=== PATIENT | female | born 1940 | race Caucasian/White ===

== ENCOUNTER 2023-09-23 03:21 | Outpatient (OUT) | payer MEDICARE, MEDICAID, SELFPAY ==
[2023-09-23 08:50] LABS: Estimated Average Glucose 146 mg/dL; Glycohemoglobin A1C 6.7 % (4.5-6.2)
--- OUTSIDE RECORDS SUMMARY | 2023-11-04 09:24 | XMS_ITS | CCD ---
Author Organization [place] [facility] Care Team Providers Care Journeyman Millwright Name Role Phone SUSAN, JOSE Bustos Admitting Unavailable WONDERLY, JOSE Bustos Consulting Unavailable WONDERLY, JOSE Bustos Attending Unavailable WONDERLY, JOSE Bustos Attending Unavailable WONDERLY, JOSE Bustos Admitting Unavailable WONDERLY, JOSE Bustos Consulting Unavailable Problems Problem Classification Problem Date Documented Da te Episodic/Chronic Unclassified (4 sources) CONTACT W/AND (SUSP) EXPOS COVID-19; Translations: [CONTACT W/AND (SUSP) EXPOS COVID-19] Onset: 05-06-2020 Results Test Name Value Interpretation Reference Range Facil ity Marko 11-17-2020 L - -------- Specimen: [id number] Received: 11/17/20 Status: JAME Urena Num: [id number] Spec Type: Surgical Subm Dr: Timothy Bautista MD Tissues: A Colon Biopsy (RANDOM COLON) Procedures: HE Stain/2, Gross/Micro L4 -------- Patient Age/Sex Location Account Attending Physician -------- Cathi Hernandez 80/F [id number] Timothy Bautista MD -------- SPEC NUM: [id number] RECD: 11/17/20 STATUS: JAME URENA NUM: [id number] ZACHARY: 11/17/20 [facility] DR: Timothy Bautista MD ENTERED: 11/17/[address]: VANESA TYPE: Surgical DEPT: S ORDERED: HE Stain/2, Gross/Micro L4 ORDERED: HE Stain/2, Gross/Micro L4 Pathological Diagnosis Random colon, biopsy: - Colonic mucosa with no significant pathologic findings. Clinical Information Diarrhea Gross Description Received in formalin labeled with the patient's name, number and random colon rule out microscopic colitis are 2 elizabeth tissue fragments, 0.3 cm and 0.4 cm. Entirely submitted in one cassette labeled A1. (SM/YJ) Microscopic Description Two glass slides with H E stained material have been examined. The microscopic findings support the above pathologic diagnosis. CPT Codes 69304 -------- -------- Specimen: [id number] Received: 11/17/20 Status: JAME Urena Num: [id number] Spec Type: Surgical Subm Dr: Timothy Bautista MD Tissues: A Colon Biopsy (RANDOM COLON) Procedures: HE Stain/2, Gross/Micro L4 -------- Patient: MilajuanAlonso dobsonteofilo [id number] (Continued) -------- Signed (signature on file) Caroline Church MD 11/18/20 1557 Normal [facility] Covid-19 PCR (CVDTB)on 04-18 Covid-19 PCR NOT DETECTED Normal NOT DETECTED [facility] Comment on above: Result Comment: This test is not yet approved or cleared by the [place] FDA. When there are no FDA-approved or cleared tests available, and other criteria are met, FDA can make tests available under an emergency access mechanism called an Emergency Use Authorization (EUA). The EUA for this test is supported by the [employer] of Health and Human Service's (HHS's) declaration that circumstances exist to justify the emergency use of in vitro diagnostics for the detection and/or diagnosis of the virus that causes COVID-19. This EUA will remain in effect (meaning this test can be used) for the duration of the COVID-19 declaration justifying emergency of IVDs, unless it is terminated or revoked by FDA (after which the test may no longer be used). Performed By: #### C VDTBH #### [facility] [address] [id number] Carlito Lamb EUA Statement SEE BELOW Normal [facility] Comment on above: Result Comment: This test is not yet approved or cleared by the [place] FDA. When there are no FDA-approved or cleared tests available, and other criteria are met, FDA can make tests available under an emergency access mechanism called an Emergency Use Authorization (EUA). The EUA for this test is supported by the [employer] Cost of Health and Human Service?s (HHS?s) declaration that circumstances exist to justify the emergency use of in vitro diagnostics for the detection and/or diagnosis of the virus that causes COVID-19. This EUA will remain in effect (meaning this test can be used) for the duration of the COVID-19 declaration justifying emergency of IVDs, unless it is terminated or revoked by FDA (after which the test may no longer be used). When diagnostic testing is negative, the possibility of a false negative should be considered in the context of a patients recent exposures and the presence of clinical signs and symptoms consistent with SARS-CoV-2. Performed By: #### C VDTBH #### [facility] [address] [place], [place] [address] Carlito Lamb Covid-19 PCR (CVDTB)on 04-18 Covid-19 PCR NOT DETECTED Normal NOT DETECTED [facility] Comment on above: Result Comment: This test is not yet approved or cleared by the [place] FDA. When there are no FDA-approved or cleared tests available, and other criteria are met, FDA can make tests available under an emergency access mechanism called an Emergency Use Authorization (EUA). The EUA for this test is supported by the [place] of Health and Human Service's (HHS's) declaration that circumstances exist to justify the emergency use of in vitro diagnostics for the detection and/or diagnosis of the virus that causes COVID-19. This EUA will remain in effect (meaning this test can be used) for the duration of the COVID-19 declaration justifying emergency of IVDs, unless it is terminated or revoked by FDA (after which the test may no longer be used). Performed By: #### C VDTB #### [facility] [address] [place] [id number] Carlito Lamb EUA Statement SEE BELOW Normal [facility] Comment on above: Result Comment: This test is not yet approved or cleared by the [place] FDA. When there are no FDA-approved or cleared tests available, and other criteria are met, FDA can make tests available under an emergency access mechanism called an Emergency Use Authorization (EUA). The EUA for this test is supported by the [employer] Cost of Health and Human Service?s (HHS?s) declaration that circumstances exist to justify the emergency use of in vitro diagnostics for the detection and/or diagnosis of the virus that causes COVID-19. This EUA will remain in effect (meaning this test can be used) for the duration of the COVID-19 declaration justifying emergency of IVDs, unless it is terminated or revoked by FDA (after which the test may no longer be used). When diagnostic testing is negative, the possibility of a false negative should be considered in the context of a patients recent exposures and the presence of clinical signs and symptoms consistent with SARS-CoV-2. Performed By: #### C VDTB #### [facility] [address] [place] [id number] Carlito Lamb Encounters Encounter Date Encounter Type Care Provider Facility Start: 05-06-2020 End: 05-06-2020 Patient encounter procedure JOSE DAVIS Facility:[facility] Start: 04-29-2020 End: 04-29-2020 Patient encounter procedure JOSE DAVIS Facility:[facility] Payers Date Payer Category Payer Medicare [id number] 1960 Medicare [id number] 1940 Unknown [id number] 1940 Unknown [id number] Summary Purpose Family History No Family History Records FoundNo Family History Records Found Advance Directives No Advanced Directives Records FoundNo Advanced Directives Records Found Additional Source Comments INFORMATION SOURCE (unrecogn ized section and content) DATE CREATED AUTHOR 05/10/2020 [facility] DATE CREATED AUTHOR AUTHOR'S ORGANIZ ATION 05/10/[address] [facility] FOR RECORDS PERTAINING TO PATIENTS WHO ARE OR HAVE BEEN ENROLLED IN A CHEMICAL DEPENDENCY/SUBSTANCEABUSE PROGRAM, SOME INFORMATION MAY BE OMITTED. This clinical summary was aggregated from multiple sources. Caution should be exercised in using it in the provision of clinical care. This summary normalizes information from multiple sources, and as a consequence, information in this document may materially change the coding, format and clinical context of patient data. In addition, data may be omitted in some cases. CLINICAL DECISIONS SHOULD BE BASED ON THE PRIMARY CLINICAL RECORDS. [employer] provides no warranty or guarantee of the accuracy or completeness of information in this document.
== END 2023-09-23 03:22 | disposition home or self-care (01) ==
LOC: LAB 11-04 09:04
PROVIDERS: PCP Family Medicine; Visit Provider Nurse Practitioner Adult Health
DX: E11.9 Type 2 diabetes mellitus without complications (principal)
CPT/HCPCS: 36415; 83036

== ENCOUNTER 2023-12-21 17:24 | Outpatient (OUT) | payer MEDICARE, MEDICAID, SELFPAY ==
--- OUTSIDE RECORDS SUMMARY | 2023-12-21 17:37 | XMS_ITS | CCD ---
Author Organization [place] [facility] Care Team Providers Care Investigation Division Sergeant Name Role Phone SUSAN, JOSE Bustos Admitting [...] ity Marko 11-17-2020 L - -------- Specimen: [id number] Received: 11/17/20 Status: JAME Urena Num: [id number] Spec Type: Surgical Subm Dr: Timothy Bautista MD Tissues: A Colon Biopsy (RANDOM COLON) Procedures: HE Stain/2, Gross/Micro L4 -------- Patient Age/Sex Location Account Attending Physician -------- Cathi Hernandez 80/F [id number] Timothy Bautista MD -------- SPEC NUM: [id number] RECD: 11/17/20 STATUS: JAME URENA NUM: [id number] ZACHARY: 11/17/[address] [facility] [address]: Timothy Bautista MD ENTERED: 11/17/20 [...] support the above pathologic diagnosis. CPT Codes 30657 -------- -------- Specimen: [id number] Received: 11/17/20 Status: JAME Urena Num: [id number] Spec Type: Surgical Subm Dr: Timothy Bautista MD Tissues: A Colon Biopsy (RANDOM COLON) Procedures: HE Stain/2, Gross/Micro L4 -------- Patient: MilajuanAlonso dobsonteofilo [id number] (Continued) -------- Signed (signature on file) Caroline Church MD 11/18/20 1557 Normal [facility] Covid-19 PCR (CVDTB)on 04-18 Covid-19 PCR NOT DETECTED Normal NOT DETECTED [facility] Comment on above: Result Comment: This test is not yet approved or cleared by the [place] FDA. When there are no FDA-approved or cleared tests available, and other criteria are met, FDA can make tests available under an emergency access mechanism called an Emergency Use Authorization (EUA). The EUA for this test is supported by the [place] of Health and Human Service's (HHS's) declaration [...] used). Performed By: #### C VDTBH #### [facility] [address] [id number] Carlito Lamb EUA Statement SEE BELOW Normal [facility] Comment on above: Result Comment: This test is not yet approved or cleared by the [place] FDA. When there are no FDA-approved or cleared tests available, and other criteria are met, FDA can make tests available under an emergency access mechanism called an Emergency Use Authorization (EUA). The EUA for this test is supported by the [employer] of Health and Human Service?s (HHS?s) declaration [...] SARS-CoV-2. Performed By: #### C VDTBH #### [facility] [address] [place], [place] [address] Carlito Lamb Covid-19 PCR (CVDTB)on 04-18 Covid-19 PCR NOT DETECTED Normal NOT DETECTED [facility] Comment on above: Result Comment: This test is not yet approved or cleared by the [place] FDA. When there are no FDA-approved or cleared tests available, and other criteria are met, FDA can make tests available under an emergency access mechanism called an Emergency Use Authorization (EUA). The EUA for this test is supported by the [employer] of Health and Human Service's (HHS's) declaration [...] used). Performed By: #### C VDTB #### [facility] [address] [place] [id number] Carlito Lamb EUA Statement SEE BELOW Normal [facility] Comment on above: Result Comment: This test is not yet approved or cleared by the [place] FDA. When there are no FDA-approved or cleared tests available, and other criteria are met, FDA can make tests available under an emergency access mechanism called an Emergency Use Authorization (EUA). The EUA for this test is supported by the [employer] of Health and Human Service?s (HHS?s) declaration [...] SARS-CoV-2. Performed By: #### C VDTB #### [facility] [address] [place] [id number] Carlito Lamb Encounters Encounter Date Encounter Type Care Provider Facility Start: 05-06-2020 End: 05-06-2020 Patient encounter procedure JOSE DAVIS Facility:[facility] Start: 04-29-2020 End: 04-29-2020 Patient encounter procedure JOSE DAVIS Facility:[facility] Payers Date Payer Category Payer Medicare [id number] 1960 Medicare [id number] 1940 Unknown [id number] 1940 Unknown [id number] Summary Purpose Family History No Family History Records FoundNo Family History Records Found Advance Directives No Advanced Directives Records FoundNo Advanced Directives Records Found Additional Source Comments INFORMATION SOURCE (unrecogn ized section and content) DATE CREATED AUTHOR 05/10/2020 [facility] DATE CREATED AUTHOR AUTHOR'S ORGANIZ ATION 05/10/2021 [facility] FOR RECORDS PERTAINING TO PATIENTS [...] BE BASED ON THE PRIMARY CLINICAL RECORDS. [employer] provides no warranty or guarantee of the accuracy or completeness of information in this document.
[2023-12-21 18:16] LABS: Estimated Average Glucose 134 mg/dL; Glycohemoglobin A1C 6.3 % (4.5-6.2)
== END 2023-12-21 17:25 | disposition home or self-care (01) ==
LOC: LAB 17:28
PROVIDERS: PCP Family Medicine; Visit Provider Nurse Practitioner Adult Health
DX: E11.9 Type 2 diabetes mellitus without complications (principal)
CPT/HCPCS: 36415; 83036